=== PATIENT | male | born 1945 | race American Indian/Alaskan Native ===

== ENCOUNTER → 2019-03-03 09:23 | Outpatient (CLI) | payer MEDICARE ==
[~2019-03-03 09:23] MED LIST: BENTYL10 MG PO; GLUCOPHAGE500 MG PO; HUMALOG 30100 UNITS/ SQ; KLOR-CON M2020 MEQ PO; LASIX40 MG PO; LEVEMIR100 U/M1 SQ; METOPROLOL TART50 MG PO; OMEPRAZOLE40 MG PO; PRINIVIL20 MG PO; SINEMET 25-1001 EACH PO
== END | disposition home or self-care (01) ==
LOC: D.HCCECHO 09:23
PROVIDERS: ATTEND Internal Medicine Cardiovascular Disease
DX: I10 Essential (primary) hypertension (principal)

== ENCOUNTER → 2019-10-17 08:40 | Outpatient (CLI) | payer MEDICARE | END | disposition home or self-care (01) | LOC: D.HCCARDIO 08:30 | PROVIDERS: ATTEND Internal Medicine Cardiovascular Disease | DX: I25.10 Atherosclerotic heart disease of native coronary artery without angina pectoris (principal) ==

== ENCOUNTER → 2019-12-04 10:57 | Outpatient (CLI) | payer MEDICARE | END | disposition home or self-care (01) | LOC: D.LAB 10:57 | PROVIDERS: ATTEND Internal Medicine Cardiovascular Disease | DX: R06.00 Dyspnea, unspecified (principal); Z11.59 Encounter for screening for other viral diseases ==

== ENCOUNTER → 2019-12-06 08:16 | Outpatient (CLI) | payer MEDICARE | END | disposition home or self-care (01) | LOC: D.RT 08:16 | PROVIDERS: ATTEND Internal Medicine Cardiovascular Disease | DX: R06.00 Dyspnea, unspecified (principal) ==

== ENCOUNTER → 2020-06-07 09:23 | Outpatient (CLI) | payer MEDICARE | END | disposition home or self-care (01) | LOC: D.NM 05-08 08:00 | PROVIDERS: ATTEND Internal Medicine Gastroenterology | DX: R52 Pain, unspecified (principal); R11.0 Nausea; R10.13 Epigastric pain; R10.817 Generalized abdominal tenderness ==

== ENCOUNTER 2020-09-19 09:54 | Emergency (ER) | payer MEDICARE | END 2020-09-19 11:01 | disposition left against medical advice (07) | LOC: D.ER 09:54 | DX: R51.9 Headache, unspecified (principal) ==